=== PATIENT | male | born 1945 | race Caucasian/White ===

== ENCOUNTER → 2022-07-06 11:53 | Outpatient (CLI) | payer OTHER, SELFPAY ==
--- NOTE | ~2022-07-06 | MR_ITS ---
EXAMINATION: MR abdomen wo/w con INDICATION: Indeterminate masses of the liver and kidney TECHNIQUE: Coronal SSFSE ARC, WATER:coronal LAVA-FLEX, Coronal 2D FIESTA FatSat, Axial SSFSE BH ARC, Axial 3D DualEcho BH, Axial SSFSE-IR, Axial DWI b=500, Axial 2D FIESTA FatSat, pre and dynamic postco ntrast Axial LAVA ARC, postcontrast Coronal In and Opposed phase LAVA FLEX COMPARISON: None available CONTRAST: Multihance, 19 cc FINDINGS: Cardiomegaly is noted. There is mild dependent atelectasis of the lungs. Changes of median sternotomy are noted. The liver, spleen, pancreas, and adrenal glands are normal. There are stones in the nondistended gallbladder. Cysts of the right kidney measure up to 3.7 cm. Cysts of the left kidn ey measure up to 1.2 cm. No suspicious kidney mass is identified. There are no pathologically enlarge d abdominal lymph nodes. There is a 4.0 x 3.3 cm fusiform infrarenal abdominal aortic aneurysm. A sma ll amount of crescentic intramural hematoma is noted. There also appears to be intramural hematoma wi thin a saccular aneurysm of the right, and iliac artery. IMPRESSION: 1. No definite suspicious kidney or liver mass identified. Comparison with any available prior imagin g would be helpful. 2. 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 Comparison with any available prior imaging is recommended. 3. Cholelithiasis without evidence of cholecystitis. Reviewed, dictated and finalized at location L. IMPRESSION: 1. No definite suspicious kidney or liver mass identified. Comparison with any available prior imaging would be helpful. 2. 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 Comparison with any available prior imaging is recommended. 3. Cholelithiasis without evidence of cholecystitis.
== END ==
DX: N28.89 Other specified disorders of kidney and ureter (principal); K80.20 Calculus of gallbladder without cholecystitis without obstruction; I71.40 Abdominal aortic aneurysm, without rupture, unspecified
CPT/HCPCS: 74183; A9577